=== PATIENT | female | born 1930 | race Caucasian/White ===

== ENCOUNTER 2016-09-14 15:39 | Inpatient (IN) | payer MEDICARE, OTHER ==
[~2016-09-14] VITALS: Ht 162.6 cm; Wt 58.1 kg
[2016-09-14] MEDS ORDERED: ONDANSETRON HCL/PF 4 MG/2 ML VIAL ONE (16:00)
[2016-09-14] MEDS ORDERED: IV NS 0.9% 1,000 ML BAG IV ONE (16:00)
[2016-09-14] MEDS ORDERED: ONDANSETRON HCL/PF 4 MG/2 ML VIAL IVP ONE (16:00)
[2016-09-14] MEDS ORDERED: IV SET PRIMARY 1 EA INFUS.SET MC ONE (16:00)
[2016-09-14 16:09] LABS: BASOPHILS % (AUTO) 0.2 % (0.0-2.0); DIFF TOTAL % 100 %; EOSINOPHILS # (AUTO) 0.1 /CMM (0.0-0.7); EOSINOPHILS % (AUTO) 0.5 % (0.0-6.0); HEMATOCRIT 36 % (33-45); HEMOGLOBIN 12.2 g/dL (11.5-14.8); LYMPHOCYTES # (AUTO) 0.7 /CMM (0.8-4.8); LYMPHOCYTES % (AUTO) 5.5 % (20.0-44.0); MEAN CORPUSCULAR HEMOGLOBIN 33 PG (26.0-33.0); MEAN CORPUSCULAR HGB CONC 34 g/dl (31.0-36.0); MEAN CORPUSCULAR VOLUME 96 fL (82-100); MONOCYTES # (AUTO) 0.8 /CMM (0.1-1.30); MONOCYTES % (AUTO) 5.9 % (2.0-12.0); NEUTROPHILS # (AUTO) 11.4 /CMM (1.8-8.9); NEUTROPHILS % (AUTO) 87.9 % (43.0-81.0); PLATELET COUNT (AUTO) 189 /CMM (150-450); RED BLOOD CELL COUNT(AUTO) 3.75 MIL/uL (4.0-5.2)
[2016-09-14 16:18] LABS: ANION GAP 14 (5-14); CALCIUM, SERUM 9.5 mg/dL (8.5-10.1); CARBON DIOXIDE 27 mmol/L (21-32); CHLORIDE 97 mmol/L (98-107); GLUCOSE 161 mg/dL (74-106); POTASSIUM 4.2 mmol/L (3.5-5.1); SODIUM SERUM 133 mmol/L (136-145); UREA NITROGEN, BLOOD 22 mg/dL (7-18)
[2016-09-14 16:23] LABS: ALANINE AMINOTRANSFERASE 26 U/L (12-78); ALBUMIN 4.2 g/dL (3.4-5.0); ASPARTATE AMINOTRANSFERASE 33 U/L (15-37); BILIRUBIN,DIRECT 0.2 mg/dL (0.0-0.2); INDIRECT BILIRUBIN 0.8 mg/dL (0.0-1.1); TOTAL PROTEIN, SERUM 7.5 g/dL (6.4-8.2)
[2016-09-14 16:26] LABS: TROPONIN I < 0.017 ng/mL (0.00-0.056)
[2016-09-14] MEDS ORDERED: SECONDARY IV SET 1 EA INFUS.SET MC ONE (17:18)
[2016-09-14] MEDS ORDERED: IV D5/0.45 NACL 500 ML IV ONE ×2 (17:18→17:30)
[2016-09-14] MEDS ORDERED: METOCLOPRAMIDE HCL 10 MG/2 ML VIAL ONE (17:48)
[2016-09-14] MEDS ORDERED: LEVO25TA9 PO (18:00)
[2016-09-14] MEDS ORDERED: NEBI2.5T5 PO (18:00)
[2016-09-14] MEDS ORDERED: ATOR40TA PO (18:00)
[2016-09-14] MEDS ORDERED: VALS80TA2 PO (18:00)
[2016-09-14] MEDS ORDERED: ASPI81TA2 PO (18:00)
[2016-09-14] MEDS ORDERED: METOCLOPRAMIDE HCL 10 MG/2 ML VIAL IV ONE (18:00)
[2016-09-14 19:30] VITALS: BP 144/61
[2016-09-14 20:00] VITALS: BP 144/61
[2016-09-14] MEDS ORDERED: ACETAMINOPHEN 650 MG/20.3 ML UDC PO PRN (21:00)
[2016-09-14] MEDS: ONDANSETRON HCL/PF 4 MG/2 ML VIAL IV PRN (21:26)
[2016-09-14] MEDS: ENOXAPARIN SODIUM 40 MG/0.4 ML DISP.SYRIN SQ SCH (21:33)
[2016-09-14] MEDS: PANTOPRAZOLE 40 MG VIAL IV SCH (22:24)
[2016-09-14] MEDS: MORPHINE SULFATE INJ 2 MG/ML DISP.SYRIN IV PRN (22:37)
[2016-09-15] MEDS ORDERED: IV SET PRIMARY PUMP SET 1 EA INFUS.SET MC ONE (02:11)
[2016-09-15] MEDS: IV D5/ 0.9% NACL 1,000 ML IV PRN ×2 (02:24→13:28)
[2016-09-15] MEDS: MORPHINE SULFATE INJ 2 MG/ML DISP.SYRIN IV PRN ×3 (05:51→20:39)
[2016-09-15 07:10] LABS: BASOPHILS % (AUTO) 0.2 % (0.0-2.0); DIFF TOTAL % 100 %; EOSINOPHILS % (AUTO) 0.1 % (0.0-6.0); HEMATOCRIT 34 % (33-45); HEMOGLOBIN 11.3 g/dL (11.5-14.8); LYMPHOCYTES # (AUTO) 0.4 /CMM (0.8-4.8); LYMPHOCYTES % (AUTO) 8.6 % (20.0-44.0); MEAN CORPUSCULAR HEMOGLOBIN 32 PG (26.0-33.0); MEAN CORPUSCULAR HGB CONC 34 g/dl (31.0-36.0); MEAN CORPUSCULAR VOLUME 95 fL (82-100); MONOCYTES # (AUTO) 0.6 /CMM (0.1-1.30); MONOCYTES % (AUTO) 13.2 % (2.0-12.0); NEUTROPHILS # (AUTO) 3.7 /CMM (1.8-8.9); NEUTROPHILS % (AUTO) 77.9 % (43.0-81.0); PLATELET COUNT (AUTO) 170 /CMM (150-450); RED BLOOD CELL COUNT(AUTO) 3.52 MIL/uL (4.0-5.2); WHITE BLOOD COUNT (AUTO) 4.8 K/uL (4.3-11.0)
[2016-09-15 07:18] LABS: CALCIUM, SERUM 8.7 mg/dL (8.5-10.1); CREATININE 0.9 mg/dL (0.6-1.3); PHOSPHORUS 3.5 mg/dL (2.5-4.9)
[2016-09-15 08:00] VITALS: BP 157/77
[2016-09-15] MEDS ORDERED: DIATR MEGLU/DIATRIZOATE SODIUM 120 ML BOTTLE (GASTROGRAPHIN) ONE (11:25)
[2016-09-15] MEDS ORDERED: BARIUM SULFATE 98% 135 ML SUSP.RECON PO ONE (11:25)
[2016-09-15] MEDS ORDERED: Medication Not On Formulary EA (Nebivolol Hcl (Bystolic) 2.5 MG) PO SCH (14:00)
[2016-09-15] MEDS: VALSARTAN 80 MG TABLET PO SCH (14:56)
[2016-09-15] MEDS: LEVOTHYROXINE SODIUM 25 MCG TABLET PO SCH (14:56)
[2016-09-15] MEDS: ATORVASTATIN 40 MG TABLET PO SCH (14:56)
[2016-09-15 16:00] VITALS: BP 157/81
[2016-09-15 20:00] VITALS: BP 168/85
[2016-09-15] MEDS: PANTOPRAZOLE 40 MG VIAL IV SCH (20:39)
[2016-09-15] MEDS: ENOXAPARIN SODIUM 40 MG/0.4 ML DISP.SYRIN SQ SCH (20:46)
[2016-09-16] MEDS: LEVOTHYROXINE SODIUM 25 MCG TABLET PO SCH (08:27)
[2016-09-16] MEDS: ATORVASTATIN 40 MG TABLET PO SCH (08:28)
[2016-09-16] MEDS: VALSARTAN 80 MG TABLET PO SCH (08:29)
[2016-09-16] MEDS: ATENOLOL 25 MG TABLET PO SCH (08:29)
[2016-09-16 09:20] VITALS: BP 105/41
[2016-09-16] MEDS: IV D5/ 0.9% NACL 1,000 ML IV PRN (09:59)
[2016-09-16 17:51] VITALS: BP 145/63
[2016-09-16] MEDS: PANTOPRAZOLE 40 MG VIAL IV SCH (18:15)
[2016-09-16] MEDS ORDERED: ATENOLOL 25 MG TABLET PO ONE (18:30)
[2016-09-16] MEDS ORDERED: VALSARTAN 80 MG TABLET PO ONE (18:30)
[2016-09-16 20:00] VITALS: BP 141/70
[2016-09-16] MEDS: ONDANSETRON HCL/PF 4 MG/2 ML VIAL IV PRN (20:07)
[2016-09-16] MEDS: MORPHINE SULFATE INJ 2 MG/ML DISP.SYRIN IV PRN (20:07)
[2016-09-16] MEDS: ENOXAPARIN SODIUM 40 MG/0.4 ML DISP.SYRIN SQ SCH (20:33)
[2016-09-17] MEDS: IV D5/ 0.9% NACL 1,000 ML IV PRN (00:37)
[2016-09-17 08:00] VITALS: BP 145/68
[2016-09-17] MEDS: LEVOTHYROXINE SODIUM 25 MCG TABLET PO SCH (08:32)
[2016-09-17] MEDS: ATORVASTATIN 40 MG TABLET PO SCH (08:32)
[2016-09-17] MEDS: ATENOLOL 25 MG TABLET PO SCH (08:34)
[2016-09-17] MEDS: VALSARTAN 80 MG TABLET PO SCH (08:35)
[2016-09-17] MEDS: MORPHINE SULFATE INJ 2 MG/ML DISP.SYRIN IV PRN ×2 (09:59→20:14)
[2016-09-17] MEDS: ONDANSETRON HCL/PF 4 MG/2 ML VIAL IV PRN (09:59)
[2016-09-17 15:37] LABS: DIFF TOTAL % 100 %; EOSINOPHILS % (AUTO) 0.2 % (0.0-6.0); HEMATOCRIT 34 % (33-45); HEMOGLOBIN 11.1 g/dL (11.5-14.8); LYMPHOCYTES # (AUTO) 0.5 /CMM (0.8-4.8); LYMPHOCYTES % (AUTO) 7.2 % (20.0-44.0); MEAN CORPUSCULAR HEMOGLOBIN 32 PG (26.0-33.0); MEAN CORPUSCULAR HGB CONC 33 g/dl (31.0-36.0); MEAN CORPUSCULAR VOLUME 96 fL (82-100); MONOCYTES # (AUTO) 0.9 /CMM (0.1-1.30); MONOCYTES % (AUTO) 12.5 % (2.0-12.0); NEUTROPHILS # (AUTO) 5.8 /CMM (1.8-8.9); NEUTROPHILS % (AUTO) 80.1 % (43.0-81.0); PLATELET COUNT (AUTO) 146 /CMM (150-450); RED BLOOD CELL COUNT(AUTO) 3.51 MIL/uL (4.0-5.2); WHITE BLOOD COUNT (AUTO) 7.3 K/uL (4.3-11.0)
[2016-09-17 15:42] LABS: CALCIUM, SERUM 8.2 mg/dL (8.5-10.1); CREATININE 0.8 mg/dL (0.6-1.3); PHOSPHORUS 2.1 mg/dL (2.5-4.9); POTASSIUM 3.6 mmol/L (3.5-5.1)
[2016-09-17 15:51] LABS: INR 0.95 (0.87-1.13); PROTHROMBIN TIME 10.3 SECS (9.5-12.7)
[2016-09-17] MEDS ORDERED: NEUTRA PHOS 1 POWD.PACKET PO ONE (18:30)
[2016-09-17 20:00] VITALS: BP_SYST 114; BP_SYST 146; BP_DIAS 56; BP_DIAS 83
[2016-09-17] MEDS: ENOXAPARIN SODIUM 40 MG/0.4 ML DISP.SYRIN SQ SCH (21:00)
[2016-09-17] MEDS: PANTOPRAZOLE 40 MG VIAL IV SCH (21:00)
[2016-09-18] MEDS: IV D5/ 0.9% NACL 1,000 ML IV PRN (01:05)
[2016-09-18] MEDS: MORPHINE SULFATE INJ 2 MG/ML DISP.SYRIN IV PRN ×4 (01:12→17:38)
[2016-09-18 06:29] LABS: DIFF TOTAL % 100 %; EOSINOPHILS % (AUTO) 0.3 % (0.0-6.0); HEMATOCRIT 32 % (33-45); HEMOGLOBIN 10.5 g/dL (11.5-14.8); LYMPHOCYTES # (AUTO) 0.5 /CMM (0.8-4.8); LYMPHOCYTES % (AUTO) 6.5 % (20.0-44.0); MEAN CORPUSCULAR HEMOGLOBIN 32 PG (26.0-33.0); MEAN CORPUSCULAR HGB CONC 33 g/dl (31.0-36.0); MEAN CORPUSCULAR VOLUME 96 fL (82-100); MONOCYTES # (AUTO) 1.2 /CMM (0.1-1.30); MONOCYTES % (AUTO) 14.6 % (2.0-12.0); NEUTROPHILS # (AUTO) 6.3 /CMM (1.8-8.9); NEUTROPHILS % (AUTO) 78.6 % (43.0-81.0); PLATELET COUNT (AUTO) 174 /CMM (150-450); RED BLOOD CELL COUNT(AUTO) 3.33 MIL/uL (4.0-5.2); WHITE BLOOD COUNT (AUTO) 8.1 K/uL (4.3-11.0)
[2016-09-18] MEDS: LEVOTHYROXINE SODIUM 25 MCG TABLET PO SCH (07:30)
[2016-09-18] MEDS ORDERED: LIDOCAINE HCL/PF 1% 30 ML SDV ONE (07:33)
[2016-09-18] MEDS ORDERED: BUPIVACAINE 0.25% 75 MG/30 ML VIAL ONE (07:33)
[2016-09-18 08:00] VITALS: BP 163/83
[2016-09-18] MEDS: VALSARTAN 80 MG TABLET PO SCH (08:12)
[2016-09-18] MEDS: ATENOLOL 25 MG TABLET PO SCH (08:12)
[2016-09-18] MEDS: ATORVASTATIN 40 MG TABLET PO SCH (09:00)
[2016-09-18] MEDS ORDERED: METRONIDAZOLE 500MG/ NS 100ML 100 ML IV ONE (10:21)
[2016-09-18] MEDS ORDERED: LEVOFLOXACIN 500 MG /D5W 100ML 500 MG in PREMIX 1 EA IV ONE (10:30)
[2016-09-18] MEDS ORDERED: FENTANYL PF 100MCG/2ML AMPUL ONE (11:14)
[2016-09-18] MEDS ORDERED: ANESTHESIA TRAY IN PYXIS 1 EA TRAY MC ONE (11:41)
[2016-09-18 11:54] LABS: CALCIUM, SERUM 8.3 mg/dL (8.5-10.1); CREATININE 0.8 mg/dL (0.6-1.3); POTASSIUM 3.4 mmol/L (3.5-5.1)
[2016-09-18 12:07] LABS: PHOSPHORUS 2.4 mg/dL (2.5-4.9)
[2016-09-18] MEDS ORDERED: MORPHINE SULFATE INJ 4 MG/ML DISP.SYRIN IV PRN (13:00)
[2016-09-18] MEDS ORDERED: MENTHOL/CETYLPYRD (CEPACOL) 1 LOZ LOZENGE PO PRN ×2 (13:00→13:30)
[2016-09-18] MEDS: METOCLOPRAMIDE HCL 10 MG/2 ML VIAL IV SCH ×2 (13:33→17:38)
[2016-09-18] MEDS: IV D5/0.45 NACL W/20 MEQ KCL 1L IV PRN ×2 (13:34)
[2016-09-18 16:00] VITALS: BP 158/74
[2016-09-18] MEDS ORDERED: SECONDARY IV SET 1 EA INFUS.SET MC ONE (17:28)
[2016-09-18] MEDS ORDERED: NEUTRA PHOS 1 POWD.PACKET PO ONE (17:30)
[2016-09-18] MEDS: METRONIDAZOLE 500MG/ NS 100ML 500 MG in PREMIX 1 EA IV SCH (17:38)
[2016-09-18 20:00] VITALS: BP 154/73
[2016-09-18] MEDS: PANTOPRAZOLE 40 MG VIAL IV SCH (21:29)
[2016-09-19] MEDS ORDERED: IV PREMIX D5 1/2NS + KCL 1,000 ML IV ONE (00:13)
[2016-09-19] MEDS: IV D5/0.45 NACL W/20 MEQ KCL 1L IV PRN ×6 (00:24→23:53)
[2016-09-19] MEDS: METOCLOPRAMIDE HCL 10 MG/2 ML VIAL IV SCH ×5 (00:25→23:54)
[2016-09-19] MEDS: METRONIDAZOLE 500MG/ NS 100ML 500 MG in PREMIX 1 EA IV SCH ×2 (02:05→10:08)
[2016-09-19 07:05] LABS: BASOPHILS % (AUTO) 0.1 % (0.0-2.0); DIFF TOTAL % 100 %; EOSINOPHILS # (AUTO) 0.1 /CMM (0.0-0.7); EOSINOPHILS % (AUTO) 1.1 % (0.0-6.0); HEMATOCRIT 34 % (33-45); HEMOGLOBIN 11.4 g/dL (11.5-14.8); LYMPHOCYTES # (AUTO) 0.9 /CMM (0.8-4.8); LYMPHOCYTES % (AUTO) 8.2 % (20.0-44.0); MEAN CORPUSCULAR HEMOGLOBIN 32 PG (26.0-33.0); MEAN CORPUSCULAR HGB CONC 33 g/dl (31.0-36.0); MEAN CORPUSCULAR VOLUME 96 fL (82-100); MONOCYTES # (AUTO) 0.5 /CMM (0.1-1.30); MONOCYTES % (AUTO) 4.3 % (2.0-12.0); NEUTROPHILS # (AUTO) 9.2 /CMM (1.8-8.9); NEUTROPHILS % (AUTO) 86.3 % (43.0-81.0); PLATELET COUNT (AUTO) 184 /CMM (150-450); RED BLOOD CELL COUNT(AUTO) 3.59 MIL/uL (4.0-5.2); WHITE BLOOD COUNT (AUTO) 10.7 K/uL (4.3-11.0)
[2016-09-19 07:29] LABS: CALCIUM, SERUM 8.1 mg/dL (8.5-10.1); CREATININE 0.8 mg/dL (0.6-1.3); PHOSPHORUS 1.9 mg/dL (2.5-4.9); POTASSIUM 3.2 mmol/L (3.5-5.1)
[2016-09-19] MEDS: LEVOTHYROXINE SODIUM 25 MCG TABLET PO SCH (07:30)
[2016-09-19 08:00] VITALS: BP 151/80
[2016-09-19] MEDS: ATORVASTATIN 40 MG TABLET PO SCH (09:00)
[2016-09-19] MEDS: VALSARTAN 80 MG TABLET PO SCH (09:03)
[2016-09-19] MEDS: ATENOLOL 25 MG TABLET PO SCH (09:03)
[2016-09-19 09:10] VITALS: BP 151/80
[2016-09-19] MEDS: MORPHINE SULFATE INJ 2 MG/ML DISP.SYRIN IV PRN ×2 (10:08→21:57)
[2016-09-19] MEDS: ENOXAPARIN SODIUM 40 MG/0.4 ML DISP.SYRIN SQ SCH (10:10)
[2016-09-19] MEDS ORDERED: POTASSIUM CHLORIDE 20 MEQ POWDER PACKET PO SCH (13:00)
[2016-09-19 16:00] VITALS: BP 138/59
[2016-09-19] MEDS ORDERED: NEUTRA PHOS 1 POWD.PACKET PO SCH (17:00)
[2016-09-19 20:00] VITALS: BP 153/76
[2016-09-19] MEDS: PANTOPRAZOLE 40 MG VIAL IV SCH (21:58)
[2016-09-20] MEDS: METOCLOPRAMIDE HCL 10 MG/2 ML VIAL IV SCH ×3 (06:56→18:24)
[2016-09-20] MEDS: LEVOTHYROXINE SODIUM 25 MCG TABLET PO SCH (06:56)
[2016-09-20 08:00] VITALS: BP 156/87
[2016-09-20] MEDS: ATORVASTATIN 40 MG TABLET PO SCH (08:21)
[2016-09-20] MEDS: VALSARTAN 80 MG TABLET PO SCH (08:22)
[2016-09-20] MEDS: ATENOLOL 25 MG TABLET PO SCH (08:22)
[2016-09-20] MEDS: ENOXAPARIN SODIUM 40 MG/0.4 ML DISP.SYRIN SQ SCH (08:23)
[2016-09-20 09:12] LABS: DIFF TOTAL % 100 %; EOSINOPHILS # (AUTO) 0.2 /CMM (0.0-0.7); EOSINOPHILS % (AUTO) 1.5 % (0.0-6.0); HEMATOCRIT 32 % (33-45); HEMOGLOBIN 10.5 g/dL (11.5-14.8); LYMPHOCYTES % (AUTO) 7.9 % (20.0-44.0); MEAN CORPUSCULAR HEMOGLOBIN 31 PG (26.0-33.0); MEAN CORPUSCULAR HGB CONC 33 g/dl (31.0-36.0); MEAN CORPUSCULAR VOLUME 94 fL (82-100); MONOCYTES # (AUTO) 1.3 /CMM (0.1-1.30); MONOCYTES % (AUTO) 10.3 % (2.0-12.0); NEUTROPHILS # (AUTO) 10.1 /CMM (1.8-8.9); NEUTROPHILS % (AUTO) 80.3 % (43.0-81.0); PLATELET COUNT (AUTO) 224 /CMM (150-450); RED BLOOD CELL COUNT(AUTO) 3.36 MIL/uL (4.0-5.2); WHITE BLOOD COUNT (AUTO) 12.5 K/uL (4.3-11.0)
[2016-09-20 09:40] LABS: CREATININE 0.8 mg/dL (0.6-1.3); POTASSIUM 3.3 mmol/L (3.5-5.1)
[2016-09-20] MEDS ORDERED: MAGNESIUM HYDROXIDE 30 ML UDC PO PRN (15:30)
[2016-09-20 16:00] VITALS: BP 158/75
[2016-09-20] MEDS ORDERED: NEUTRA PHOS 1 POWD.PACKET PO ONE (16:00)
[2016-09-20] MEDS: DOCUSATE SODIUM 100 MG CAPSULE PO SCH (16:33)
[2016-09-20 20:00] VITALS: BP 154/82
[2016-09-20] MEDS: PANTOPRAZOLE 40 MG VIAL IV SCH (21:25)
[2016-09-21] MEDS: METOCLOPRAMIDE HCL 10 MG/2 ML VIAL IV SCH ×5 (00:04→23:08)
[2016-09-21] MEDS: LEVOTHYROXINE SODIUM 25 MCG TABLET PO SCH (07:40)
[2016-09-21] MEDS: ATORVASTATIN 40 MG TABLET PO SCH (07:55)
[2016-09-21] MEDS: DOCUSATE SODIUM 100 MG CAPSULE PO SCH ×2 (07:55→17:50)
[2016-09-21] MEDS: ATENOLOL 25 MG TABLET PO SCH (07:55)
[2016-09-21] MEDS: VALSARTAN 80 MG TABLET PO SCH (07:56)
[2016-09-21] MEDS: ENOXAPARIN SODIUM 40 MG/0.4 ML DISP.SYRIN SQ SCH (07:58)
[2016-09-21 08:00] VITALS: BP 163/83
[2016-09-21] MEDS ORDERED: BISACODYL (5 MG) 5 MG TABLET.DR PO PRN (10:30)
[2016-09-21 16:00] VITALS: BP 155/70
[2016-09-21 20:00] VITALS: BP 163/75
[2016-09-21 20:58] VITALS: BP 163/77
[2016-09-21] MEDS: PANTOPRAZOLE 40 MG VIAL IV SCH (21:41)
[2016-09-21] MEDS: MAGNESIUM HYDROXIDE 30 ML UDC PO SCH (21:41)
[2016-09-22] MEDS: METOCLOPRAMIDE HCL 10 MG/2 ML VIAL IV SCH ×3 (07:20→16:42)
[2016-09-22] MEDS: LEVOTHYROXINE SODIUM 25 MCG TABLET PO SCH (07:47)
[2016-09-22] MEDS: DOCUSATE SODIUM 100 MG CAPSULE PO SCH ×2 (08:20→17:11)
[2016-09-22] MEDS: ATORVASTATIN 40 MG TABLET PO SCH (08:20)
[2016-09-22] MEDS: VALSARTAN 80 MG TABLET PO SCH (08:21)
[2016-09-22] MEDS: ATENOLOL 25 MG TABLET PO SCH (08:21)
[2016-09-22] MEDS: ENOXAPARIN SODIUM 40 MG/0.4 ML DISP.SYRIN SQ SCH (08:39)
[2016-09-22] MEDS ORDERED: BISACODYL SUPP (10 MG) 10 MG/SUPP.RECT SUPP.RECT RC PRN (10:30)
[2016-09-22] MEDS ORDERED: HYDROCODONE/APAP 5/325MG 1 EACH TABLET PO PRN (13:00)
[2016-09-22 16:00] VITALS: BP 152/73
[2016-09-22 21:24] VITALS: BP 156/78
[2016-09-22] MEDS: MAGNESIUM HYDROXIDE 30 ML UDC PO SCH (22:23)
[2016-09-22] MEDS: PANTOPRAZOLE 40 MG VIAL IV SCH (22:23)
[2016-09-23] MEDS: METOCLOPRAMIDE HCL 10 MG/2 ML VIAL IV SCH ×3 (01:04→11:53)
[2016-09-23 08:00] VITALS: BP 167/82
[2016-09-23] MEDS: LEVOTHYROXINE SODIUM 25 MCG TABLET PO SCH (08:41)
[2016-09-23] MEDS: DOCUSATE SODIUM 100 MG CAPSULE PO SCH (08:41)
[2016-09-23] MEDS: ATORVASTATIN 40 MG TABLET PO SCH (08:41)
[2016-09-23 08:42] VITALS: BP 167/82
[2016-09-23] MEDS: ATENOLOL 25 MG TABLET PO SCH (08:42)
[2016-09-23] MEDS: VALSARTAN 80 MG TABLET PO SCH (08:42)
[2016-09-23] MEDS: ENOXAPARIN SODIUM 40 MG/0.4 ML DISP.SYRIN SQ SCH (08:44)
== END 2016-09-23 13:50 | disposition home health service (06) | DRG 330 ==
LOC: ER 15:41 → MEDSG2 19:31
PROVIDERS: ADMIT Legal Medicine; ATTEND Legal Medicine
PROC: 0DN84ZZ Release Small Intestine, Percutaneous Endoscopic Approach (ICD-10-PCS; 2016-09-18)
PROC: 0DB84ZZ Excision of Small Intestine, Percutaneous Endoscopic Approach (ICD-10-PCS; principal; 2016-09-18 09:30)
DX: K56.60 Unspecified intestinal obstruction (principal); E87.1 Hypo-osmolality and hyponatremia; I25.10 Atherosclerotic heart disease of native coronary artery without angina pectoris; I10 Essential (primary) hypertension; Z95.1 Presence of aortocoronary bypass graft; K56.5 Intestinal adhesions [bands] with obstruction (postinfection); Z88.1 Allergy status to other antibiotic agents; Z88.0 Allergy status to penicillin; Z98.890 Other specified postprocedural states
CPT/HCPCS: 36415; 71010-TC; 74000-TC; 74022-TC; 74250-TC; 80048-TC; 80076-TC; 83690-TC; 83735-TC; 84100-TC; 84484-TC; 85025-TC; 85610-TC; 86850-TC; 87081-TC; 97001-TC; 97116-TC; 97530-TC; A4216; A4606; A6209; A6402; C9113; J1650; J1956; J2270; J2405; J2765; J3010; J3480; J3490; J7042; Q9963; Z7610